=== PATIENT | female | born 2000 | race Caucasian/White ===

== ENCOUNTER 2020-09-24 10:09 | Emergency (ER) | payer OTHER ==
[~2020-09-24] VITALS: Ht 177.8 cm; Wt 63.5 kg
[2020-09-24 11:13] LABS: BASOPHILS % (AUTO) 1 % (0-10); BILIRUBIN,URINE NEGATIVE (NEGATIVE); CLARITY,URINE CLEAR; COLOR,URINE YELLOW; EOSINOPHILS # (AUTO) 0.4 10^3/uL (0.0-0.3); EOSINOPHILS % (AUTO) 5 % (0-10); GLUCOSE, URINE (UA) NEGATIVE (NEGATIVE); HEMATOCRIT 45 % (35-52); HEMOGLOBIN 14.8 g/dL (11.5-16.0); KETONES,URINE NEGATIVE (NEGATIVE); LEUKOCYTE ESTERASE ,URINE NEGATIVE (NEGATIVE); LYMPHOCYTES % (AUTO) 27 % (12-44); MEAN CORPUSCULAR HEMOGLOBIN 29 pg (25-34); MEAN CORPUSCULAR HGB CONC 33 g/dL (32-36); MEAN CORPUSCULAR VOLUME 87 fL (80-99); MEAN PLATELET VOLUME 10.3 fL (9.0-12.2); MONOCYTES # (AUTO) 0.7 10^3/uL (0.0-1.0); MONOCYTES % (AUTO) 10 % (0-12); NEUTROPHILS # (AUTO) 4.2 10^3/uL (1.8-7.8); NEUTROPHILS % (AUTO) 57 % (42-75); NITRITE,URINE NEGATIVE (NEGATIVE); PLATELET COUNT 263 10^3/uL (130-400); PROTEIN,URINE NEGATIVE (NEGATIVE); WHITE BLOOD COUNT 7.4 10^3/uL (4.3-11.0)
[2020-09-24 11:21] LABS: BACTERIA,URINE NEGATIVE /HPF; SQUAMOUS EPITHELIAL CELL,UR 0-2 /HPF
[2020-09-24 11:23] LABS: ALBUMIN 4.9 GM/DL (3.2-4.5)
[2020-09-24 11:24] LABS: CHLORIDE 108 MMOL/L (98-107); POTASSIUM 4.3 MMOL/L (3.6-5.0); SODIUM 139 MMOL/L (135-145)
[2020-09-24 11:25] LABS: CALCIUM 9.4 MG/DL (8.5-10.1)
[2020-09-24 11:26] LABS: GLUCOSE 84 MG/DL (70-105); TOTAL PROTEIN 8.5 GM/DL (6.4-8.2)
[2020-09-24 11:27] LABS: CARBON DIOXIDE 22 MMOL/L (21-32)
[2020-09-24 11:28] LABS: BILIRUBIN,TOTAL 0.5 MG/DL (0.1-1.0)
[2020-09-24 11:29] LABS: ALKALINE PHOSPHATASE 104 U/L (40-136)
[2020-09-24 11:30] LABS: CREATININE SERUM 0.74 MG/DL (0.60-1.30); GFR ESTIMATED > 60
[2020-09-24 11:31] LABS: BUN/CREATININE RATIO 11
[2020-09-24 11:33] LABS: ALANINE AMINOTRANSFERASE 19 U/L (0-55); LIPASE 69 U/L (8-78)
--- NOTE | 2020-09-24 11:48 | ED Abdominal Pain ---
General Chief Complaint: Abdominal/GI Problems Stated Complaint: COUGH Nursing Triage Note: PT AMB TO [facility] WITH COMPLAINT OF UPPER ABD PAIN. IN MARCH WAS DIAGNOSED WITH A LIVER TUMOR AND HAS BEEN FOLLOWING WITH LIVER SPECIALIST IN [place]. HAS INTERMITTENT PAIN, THAT WORSENS WITH MOVEMENT. HAS BEEN TOLD BY SPECIALIST THAT TUMOR SHOULD NOT BE CAUSING PAIN. Sepsis Screen: No Definite Risk Source of Information: Patient Exam Limitations: No Limitations History of Present Illness Date Seen by Provider: Sep 24, 2020 Time Seen by Provider: 11:38 Initial Comments This is a 20-year-old female who presents to the ER with diffuse upper abdominal pain that has been present since 7:30 this morning. 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 GI specialist, Dr. Hartley has been following her with this. Episodes are typically intermittent, sharp and stabbing. But since this morning it has been more constant in nature. She additionally reports dry cough, runny nose and right sided throat pain, which she attributes to her allergies. Denies any COVID exposure, ill contacts, rash, fever, chills, nausea, vomiting, chest pain, or diarrhea. Her last menstrual period was approximately 2 weeks ago. She does have a MRI of the abdomen scheduled on October 12, ordered by Dr. Hartley. However, she states that she does not feel anyone has really addressed her concerns, and she is concerned something more serious may be happening such as having a growing cancerous lesion. Allergies and Home Medications Allergies Coded Allergies: No Known Drug Allergies (Unverified , 09/24/20) Home Medications Hydrocodone/Acetaminophen 1 Each Tablet, 1 EACH PO Q6H Prescribed by: PATRICIA GARCIA on 09/24/20 4372 Patient Home Medication List Home Medication List Reviewed: Yes Review of Systems Review of Systems Constitutional: no symptoms reported EENTM: See HPI Respiratory: See HPI Cardiovascular: No Symptoms Reported Gastrointestinal: See HPI Genitourinary: No Symptoms Reported Musculoskeletal: no symptoms reported Skin: no symptoms reported Psychiatric/Neurological: No Symptoms Reported Endocrine: No Symptoms Reported Hematologic/Lymphatic: No Symptoms Reported Past Tszcbef-[id number]-Fghcql Hx Patient Social History Alcohol Use: Occasionally Uses Recreational Drug Use: No Smoking Status: Current Everyday Smoker Type Used: Electronic/Vapor Recent Foreign Travel: No Contact w/Someone Who Travel: No Recent Infectious Disease Expo: No Recent Hopitalizations: No Immunizations Up To Date Tetanus Booster (TDap): Unknown PED Vaccines UTD: Yes Seasonal Allergies Seasonal Allergies: No Past Medical History Surgeries: No Respiratory: No Cardiac: No Neurological: No Genitourinary: No Gastrointestinal: Yes (LIVER TUMOR) Endocrine: No HEENT: No Cancer: No Psychosocial: No Integumentary: No Blood Disorders: No Physical Exam Vital Signs Vital Signs - First Documented 09/24/20 10:40 Temp 37.1 Pulse 82 Resp 20 B/P (MAP) 132/90 (104) Pulse Ox 99 O2 Delivery Room Air Capillary Refill : Less Than 3 Seconds Height/Weight/BMI Height: '" Weight: lbs. oz. kg; 20.00 BMI Method: General Appearance: WD/WN, no apparent distress HEENT: PERRL/EOMI, normal ENT inspection, TMs normal, pharynx normal Neck: non-tender, full range of motion, supple, normal inspection Respiratory: chest non-tender, lungs clear, normal breath sounds, no respiratory distress, no accessory muscle use Cardiovascular: regular rate, rhythm, no edema, no murmur Peripheral Pulses: 1+ Radial Pulses (R), 1+ Radial Pulses (L) Gastrointestinal: normal bowel sounds, soft, no pulsatile mass; No distended, No rebound; tenderness; No hepatomegaly, No spleenomegaly Extremities: normal range of motion, non-tender, normal inspection Back: normal inspection, no CVA tenderness Neurologic/Psychiatric: no motor/sensory deficits, alert, normal mood/affect, oriented x 3 Skin: normal color, warm/dry Lymphatic: no adenopathy Progress/Results/Core Measures Results/Orders Lab Results Laboratory Tests Test 09/24/20 10:54 Range/Units White Blood Count 7.4 4.3-11.0 10^3/uL Red Blood Count 5.12 H 3.80-5.11 10^6/uL Hemoglobin 14.8 11.5-16.0 g/dL Hematocrit 45 35-52 % Mean Corpuscular Volume 87 80-99 fL Mean Corpuscular Hemoglobin 29 25-34 pg Mean Corpuscular Hemoglobin Concent 33 32-36 g/dL Red Cell Distribution Width 13.1 10.0-14.5 % Platelet Count 263 130-400 10^3/uL Mean Platelet Volume 10.3 9.0-12.2 fL Immature Granulocyte % (Auto) 0 % Neutrophils (%) (Auto) 57 42-75 % Lymphocytes (%) (Auto) 27 12-44 % Monocytes (%) (Auto) 10 0-12 % Eosinophils (%) (Auto) 5 0-10 % Basophils (%) (Auto) 1 0-10 % Neutrophils # (Auto) 4.2 1.8-7.8 10^3/uL Lymphocytes # (Auto) 2.0 1.0-4.0 10^3/uL Monocytes # (Auto) 0.7 0.0-1.0 10^3/uL Eosinophils # (Auto) 0.4 H 0.0-0.3 10^3/uL Basophils # (Auto) 0.0 0.0-0.1 10^3/uL Immature Granulocyte # (Auto) 0.0 0.0-0.1 10^3/uL Urine Color YELLOW Urine Clarity CLEAR Urine pH 6.0 5-9 Urine Specific [place] 1.015 L 1.016-1.022 Urine Protein NEGATIVE NEGATIVE Urine Glucose (UA) NEGATIVE NEGATIVE Urine Ketones NEGATIVE NEGATIVE Urine Nitrite NEGATIVE NEGATIVE Urine Bilirubin NEGATIVE NEGATIVE Urine Urobilinogen 0.2 < = 1.0 MG/DL Urine Leukocyte Esterase NEGATIVE NEGATIVE Urine RBC (Auto) NEGATIVE NEGATIVE Urine RBC NONE /HPF Urine WBC NONE /HPF Urine Squamous Epithelial Cells 0-2 /HPF Urine Crystals NONE /LPF Urine Bacteria NEGATIVE /HPF Urine Casts NONE /LPF Urine Mucus NEGATIVE /LPF Urine Culture Indicated NO Sodium Level 139 135-145 MMOL/L Potassium Level 4.3 3.6-5.0 MMOL/L Chloride Level 108 H 98-107 MMOL/L Carbon Dioxide Level 22 21-32 MMOL/L Anion Gap 9 5-14 MMOL/L Blood Urea Nitrogen 8 7-18 MG/DL Creatinine 0.74 0.60-1.30 MG/DL Estimat Glomerular Filtration Rate > 60 BUN/Creatinine Ratio 11 Glucose Level 84 70-105 MG/DL Calcium Level 9.4 8.5-10.1 MG/DL Corrected Calcium 8.5-10.1 MG/DL Total Bilirubin 0.5 0.1-1.0 MG/DL Aspartate Amino Transf (AST/SGOT) 27 5-34 U/L Alanine Aminotransferase (ALT/SGPT) 19 0-55 U/L Alkaline Phosphatase 104 40-136 U/L Total Protein 8.5 H 6.4-8.2 GM/DL Albumin 4.9 H 3.2-4.5 GM/DL Lipase 69 8-78 U/L Serum Test, Qualitative NEGATIVE NEGATIVE Coronavirus 2019 (GARETH) Negative Negative Monoscreen NEGATIVE NEGATIVE Micro Results Microbiology 09/24/20 Influenza Types A,B Antigen (RENITA) - Final, Complete My Orders Orders - PATRICIA GARCIA APRN Monotest (09/24/20 11:43) Ct Abdomen/Pelvis W (09/24/20 11:44) Fentanyl Injection (Sublimaze Injection (09/24/20 12:00) Iohexol Injection (Omnipaque 350 Mg/Ml 1 (09/24/20 12:45) Received Contrast (Hold Metformin- Contr (09/24/20 12:45) Ns (Ivpb) (Sodium Chloride 0.9% Ivpb Bag (09/24/20 12:45) Medications Given in ED Current Medications Medications Dose Ordered Sig/Nolan Route Start Time Stop Time Status Last Admin Dose Admin Iohexol 100 ml ONCE ONCE IV 09/24/20 12:45 09/24/20 12:46 DC 09/24/20 13:01 80 ML Sodium Chloride 100 ml ONCE ONCE IV 09/24/20 12:45 09/24/20 12:46 DC 09/24/20 13:01 80 ML Vital Signs/I&O 09/24/20 09/24/20 10:40 13:49 Temp 37.1 Pulse 82 76 Resp 20 16 B/P (MAP) 132/90 (104) 135/86 Pulse Ox 99 98 O2 Delivery Room Air Room Air Blood Pressure Mean: 104 Progress Progress Note : Progress Note Ordered CBC, CMP, UA with , Monospot, lipase, and CT abd w/pelvis to assess for any signs of infection, changes in liver enzymes, and rule out COVID. Overall, she is a healthy-appearing individual. Discussed the plan of care with her and she is agreeable with plan. Labs reviewed and are unremarkable. Discussed the findings of the CT with her and recommendations to call Dr. Hernandez office on Saturday to see if they would like to move up her MRI. Reviewed her discharge plan and she is agreeable with plan. Departure Impression Primary Impression: Abdominal pain Disposition: 01 HOME, SELF-CARE Condition: Improved Departure-Patient Inst. Decision time for Depature: 13:39 Patient Instructions: Focal Nodular Hyperplasia Add. Discharge Instructions: Plan: 1. Call Dr. Hartley office on Saturday to see about moving up scheduled liver MRI. 2. Take hydrocodone as needed for severe pain and as directed. 3. Return to the ER for any new, worsening, or concerning symptoms. All discharge instructions reviewed with patient and/or family. Voiced understanding. Scripts Hydrocodone/Acetaminophen (Hydrocodone-Acetamin 5-325 mg) 1 Each Tablet 1 EACH PO Q6H for Pain, #10 TAB 0 Refills Prov: PATRICIA GARCIA CLAIMS AUDITOR 09/24/20 PATRICIA GARCIA CLAIMS AUDITOR Sep 24, 2020 11:48
[2020-09-24] MEDS ORDERED: fentaNYL INJECTION 100 MCG/2 ML AMP IVP PRN (12:00)
[2020-09-24] MEDS ORDERED: NS 100 ML (IVPB) BAG IV ONE (12:45)
[2020-09-24] MEDS ORDERED: HOLD METFORMIN - RECEIVED CONTRAST 20 ML VIAL IV SCH (12:45)
[2020-09-24] MEDS ORDERED: IOHEXOL 350 MG/ML 100 ML (OMNIPAQUE 350) VIAL IV ONE (12:45)
--- NOTE | 2020-09-24 13:20 | Diagnostic Imaging Report ---
PROCEDURE: CT abdomen and pelvis with contrast. TECHNIQUE: Multiple contiguous axial images were obtained through the abdomen and pelvis after administration of intravenous contrast. Auto Exposure Controls were utilized during the CT exam to meet ALARA standards for radiation dose reduction. All CT scans use one or more of the following dose optimizing techniques: automated exposure control, MA and/or KvP adjustment based on patient size and exam type or iterative reconstruction. INDICATION: Right upper quadrant pain. History of a mass in the liver. COMPARISON: None FINDINGS: Lung bases are clear. The heart is normal in size. There is a heterogeneous enhancing mass in the left liver which measures 4.9 cm transverse and 3.6 cm AP. No other masses are seen in the liver. There are no comparison studies available. There is no evidence of intra-mass or intrahepatic hemorrhage seen. No perihepatic ascites or contrast is seen. The spleen appears normal. Small splenules are noted. The pancreas is normal. The adrenal glands are normal. The kidneys appear normal. The bowel loops are nondistended without obstruction. The appendix is normal. No free air is seen. There is a small amount of free fluid in the pelvis. No acute osseous abnormality is seen. IMPRESSION: 1. Heterogeneous enhancing mass in the left liver. Given the patient's age, hepatic adenoma or focal nodular hyperplasia are most likely. If clinically indicated, nonemergent MRI using hepatic Eovist contrast protocol could be performed. There is no evidence of intrahepatic hemorrhage or contrast extravasation. 2. Small amount of ascites, may be physiologic. Dictated by: Dictated on workstation # [id number]
[2020-09-24] MEDS ORDERED: ACHD5005 PO (13:42)
[2020-09-24 13:49] VITALS: BP 135/86
== END 2020-09-24 13:49 | disposition home or self-care (01) ==
LOC: ER 10:10
DX: R10.84 Generalized abdominal pain (principal); F17.290 Nicotine dependence, other tobacco product, uncomplicated
CPT/HCPCS: 74177; 80053; 81000; 83690; 84703; 85025; 86308; 87804; 99284; U0002; 36415; 87635